=== PATIENT | male | born 1965 | race Caucasian/White ===

== ENCOUNTER → 2023-05-02 | Emergency (ER) | payer BC ==
--- OUTSIDE RECORDS SUMMARY | 2023-05-02 10:03 | XMS REPORT | Clinical Summary ---
Author Name Unknown Organization [facility] Address [address] [place] [address] Care Team Providers Care Ncr Operator Name Role Phone Anna Echeverria MD Primary Care Provider [phone] Trace Jessica MD Unavailable [phone] J Carlos Piedra MD Unavailable [phone] Jaskaran Eden MD Unavailable Allergies Active Allergy Reactions Criticality Noted Date Comments Ciprofloxacin 02/17/2022 Per patient request Gadobutrol Other (See Comments) Medium 09/26/2021 09/26/2021 MRI w/gadavist used. Near end of scan complained of nausea and throat tightness, symptoms quickly resolved, no medical intervention performed. May benefit from 13 hour prep w/benadryl and zofran IV Levofloxacin Other (See Comments) 02/11/2016 Tendon rupture Quinolones Anxiety,Other (See Comments) High 12/15/2018 Tendon rupture Sulfa (Sulfonamide Antibiotics) Rash Low 09/10/2021 Medications Medication Sig Dispensed Refills Start Date End Date Status lisinopril (PRINIVIL,ZESTR IL) 20 mg tablet TAKE 1 TABLET BY MOUTH DAILY 0 2 Active PARoxetine (PAXIL) 40 mg tablet TAKE 1 TABLET BY MOUTH DAILY 0 2 Active acetaminophen 325 mg cap Take 4 capsules (1,300 mg) by mouth 3 (three) times a day as needed. 0 Active tamsulosin (Flomax) 0.4 mg 24 hr capsuleIndicati ons:Adenocarcin renaldo of prostate Take 1 capsule (0.4 mg) by mouth twice daily. 180 capsule 4 02/17/202 3 Active cyclobenzaprine (FLEXERIL) 10 mg tablet TAKE 1 TABLET BY MOUTH EVERY 8 HOURS NEEDED FOR MUSCLE SPASMS 0 3 Active omeprazole (PriLOSEC) 40 MG capsule TAKE 1 CAPSULE BY MOUTH DAILY. DO NOT. START UNTIL ALL ANTIBIOTICS ARE FINISHED 0 3 Active atorvastatin (LIPITOR) 20 mg tablet TAKE 1 TABLET BY MOUTH EVERY NIGHT AT BEDTIME 0 2 01/16/20 23 Discontinued(Not Applicable) tamsulosin (FLOMAX) 0.4 mg 24 hr capsuleIndicati ons:Adenocarcin renaldo of prostate Take 1 capsule (0.4 mg) by mouth at bedtime. 30 capsule 11 2 05/16/19 23 Discontinued tamsulosin (Flomax) 0.4 mg 24 hr capsuleIndicati ons:Adenocarcin renaldo of prostate Take 1 capsule (0.4 mg) by mouth twice daily. 180 capsule 4 2 05/16/19 23 Discontinued pregabalin (Lyrica) 25 mg capsuleIndicati ons:Diffuse pain Take 1 capsule (25 mg) by mouth twice daily. 60 capsule 2 2 01/16/20 23 Discontinued Active Problems Patient Care Coordination No te Formatting of this note migh t be different from the original. 05/18/2022 Pre procedure COVID testing completed at [facility] on 05/17/2022. SARS COV-2 NAAT test result is NEGATIVE. Pt sent results in Cardiovascular Simulation--Attached to [employer] Messaging message. Problem Noted Date Diagnosed Date Adenocarcinoma of prostate 11/15/2021 Cancer Staging:Clinical stage from 11/07/2021:Stage IIC(cT1c, cN0, cM0, PSA: 5.4, Grade Group: 3) - Signed by Rianna Dumont PA on 11/15/2021 Encounters Date Type Department Care Team Description 01/15/2023 9:30 AM CDT Telemedicine [facility] [place] - Radiation Oncology [address] [place] [address] Jaskaran Eden MD Adenocarcinoma of prostate (Primary Dx) 01/13/2023 8:00 PM CDT Ancillary Procedure Image Library [address] [place] [id number] Anna Echeverria MD Cancer 09/18/2022 Telephone MD [facility] [place] - Radiation Oncology [address] [place] [address] [address] [place] [address] Eric Pratt, [place] 07/17/2022 9:00 AM CDT Telemedicine MD [facility] [place] - Radiation Oncology [address] [place] [address] [address] [place] [address] Jaskaran Eden MD Adenocarcinoma of prostate 06/16/2022 Telephone MD [facility] [place] - Pain Medicine [address] [place] [address] [address] [place] [address] Nishi Petersen RN 05/19/2022 10:35 AM DEGREE CLERK Anesthesia Event [facility] Main Bldg, 5th [place] [address] Arnulfo Bourne MD 05/19/2022 Surgery [facility] [address] [place], [place] [address]vd Main Bldg, 5th [place] [address] Pool Car MD DIAGNOSTIC UPPER GASTROINTESTINAL ENDOSCOPY 05/19/2022 Hospital Encounter [facility] [facility] Main Bldg, 5th [place] [address] Pool Car MD 05/16/2022 8:39 AM DEGREE CLERK Anesthesia Event [facility] [address] [place] [address] Main Bldg, 6th [place] [address] Tomás Brumfield Jr., [place] 05/16/2022 8:00 AM DEGREE CLERK POEM Appointments [facility] [address] [place] [address] Main Bldg, 6th [place] [address] Anna Echeverria MD 05/16/2022 Orders Only MD [facility] [place] - Urology [address] [place] [address] Rianna Dumont PA Adenocarcinoma of prostate 05/16/2022 Telephone MD [facility] [place] - Surgical Oncology [address] [place] [address] Dara Devine, torpedo worker clarification (flomax) 05/14/2022 Orders Only MD [facility] [place] - Radiation Oncology [address] [place] [address] Violet Weathers PA Adenocarcinoma of prostate (Primary Dx); Melena after 05/02/2022 Surgical History Surgery Date Site/Laterality Comments SHOULDER SURGERY 03/30/2011 - 03/29/2012 Right COLONOSCOPY 03/30/2016 - 03/29/2017 TONSILLECTOMY 03/30/1972 - 03/29/1973 OTHER SURGICAL HISTORY 03/30/1984 - 03/29/1985 Under the [facility] KNEE SURGERY 03/30/2006 - 03/29/2007 Right No metal placed [place] ESOPHAGOGASTRODUODENOSCOP Y TRANSORAL DIAGNOSTIC 05/19/2022 Esophagus/N/A Procedure: DIAGNOSTIC UPPER GASTROINTESTINAL ENDOSCOPY; Surgeon: Pool Riley MD; Location: MAIN ENDOSCOPY; Service: GASTROENTEROLOGY Medical History Medical History Date Comments Hypertension Hyperlipidemia Irregular heart beat Hearing loss Functional visual loss Swallowing problem Asbestosis Exposure of Asbe stos Pneumonia History of recurrent urinary tract infection Sexual dysfunction Benign prostatic hyperplasia Arthritis Scoliosis D Depressive disorder Anxiety Eczema Arrhythmia Cancer Family History Medical History Relation Name Comments Ovarian cancer Sister Fay Relation Name Status Comments Sister Fay Social History Tobacco Use Types Packs/Day Years Used Date Smoking Tobacco: Every Day Cigarettes 1.5 36 Smokeless Tobacco: Never Tobacco Cessation:Ready to Q uit: Not Asked; Counseling Given: Not Answered Alcohol Use Standard Drinks/Week Comments Yes 5 (1 standard drink = 0.6 oz pur e alcohol) intermittent Sex and Gender Information Value Date Recorded Sex Assigned at Not on file Gender Identity Not on file Sexual Orientation Not on file Job Start Date Occupation Industry Not on file Not on file Not on file Obstetrics History Plan of Treatment Upcoming Encounters Date Type Department Care Team Description 07/14/2023 10:00 AM CDT Lab MD [facility] [place] - [facility] [address] [place] [address] Jaskaran Eden MD [address] [place] [address] 07/16/2023 9:30 AM CDT Telemedicine MD [facility] [place] - Radiation Oncology [address] [place], [place] [id number] Jaskaran Eden MD [facility] [place] [address] Health Maintenance Due Date Last Done Comments COVID-19 Vaccination (#1) 1969 Medical Devices Implanted Type Area Senior Office Support Assistant Sosa Device Identifier Shelf Expiration Date Model / Serial / Lot Morton In Shoulder Procedures Procedure Name Priority Date/Time Associated Diagnosis Comments TESTOSTERONE LEVEL Routine 01/13/2023 8: 27 AM CDT Adenocarcinoma of prostate PROSTATE SPECIFIC ANTIGEN Routine 01/13/2023 8:27 AM CDT Adenocarcinoma of prostate OSI CT CHEST Routine 01/07/2023 11:22 AM CDT Cancer TESTOSTERONE LEVEL Routine 07/11/2022 9: 23 AM CDT Adenocarcinoma of prostate PROSTATE SPECIFIC ANTIGEN Routine 07/11/2022 9:23 AM CDT Adenocarcinoma of prostate DIAGNOSTIC UPPER GASTROINTESTINAL ENDOSCOPY Adenocarcinoma of prostate Case Notes X1 04/19/2022 Patient will call back once he is feeling better from radiation GJF after 05/02/2022 Results * (ABNORMAL) Testosterone Level (01/13/2023 8:27 AM CDT) Only the most recent of2 resultswithin the time period is included. Testoster Tot 171(L) 193 - 740 ng/dL HYDES Comment: Reference Ranges: Male: Age 20 - 49 249 - 836 Age >=50 193 - 740 Female: Age 20 - 49 8 - 48 Age >=50 3 - 41 Testing performed at [facility], [address], [place] [address] Blood 01/13/2023 8:27 AM CDT 01/13/2023 8:48 AM CDT Jaskaran Eden MD LAB BLOOD ORDERABLES Performing Organization Address City/[facility] Co de Phone Number [facility] [address], [address] [place] [address] * PSA (01/13/2023 8:27 AM CDT) Only the most recent of2 resultswithin the time period is included. PSA 0.8 0.0 - 4.0 ng/mL HYDES Comment: Results greater than 4519 ng/mL may not be reliable due to matrix effect with extended dilution as it exceeds the employment attorney's recommended limit. Caution should be exercised when interpreting such values and done in conjunction with clinical context. Testing performed at [facility], [address] [place] [address], [place] [address] PSA Indication Diagnostic HYDES Blood 01/13/2023 8:27 AM CDT 01/13/2023 8:48 AM CDT Jaskaran Eden MD LAB BLOOD ORDERABLES Performing Organization Address [facility] Co de Phone Number [address], [address] [place] [address] * OSI CT Chest (01/07/2023 11:22 AM CDT) Narrative Systemgenerated, Documentation - 01/13/2023 11:22 AM CDT Study acquired at another institution. For comparison only. No Andrew originated interpretation requested or available. Anna Echeverria MD IMG OUTSIDE IMAGE OR DERABLES after 05/02/2022 Care Teams Ncr Operator Relationship Specialty Start Date End Date Anna Echeverria MD [address] [place] [address] PCP - General Urology 09/06/21 Trace Jessica MD [address] [facility] [place] [address] PCP - External Follow Up A Family Practice 12/03/21 J Carlos Piedra MD [address] [place] [address] Consulting Physician Pain Management 03/17/22 Jaskaran Eden MD [address] [place] [address] Consulting Physician Radiation Oncology 11/20/21
--- NOTE | 2023-05-02 10:16 | ER ---
Nurse's Notes [facility] Name: Chance Camarena Age: 57 yrs Sex: Male : 1965 Arrival Date: 05/02/2023 Time: 10:00 Bed 7 Private MD: Diagnosis: Marijuana use, anxiety Presentation: 05/02 10:03 Chief complaint: EMS states: toned out to Vape shop in [place] for pt who smoked ld1 CBD and became disoriented. Pt reports having chronic pain, trying new things to relieve pain. Smoke shop toned out EMS for pt becoming disoriented and stumbling around shop. Coronavirus screen: At this time, the client does not indicate any symptoms associated with coronavirus-19. Ebola Screen: No symptoms or risks identified at this time. Initial Sepsis Screen: Does the patient meet any 2 criteria? No. Patient's initial sepsis screen is negative. Does the patient have a suspected source of infection? No. Patient's initial sepsis screen is negative. Risk Assessment: Do you want to hurt yourself or someone else? Patient reports no desire to harm self or others. Onset of symptoms was May 02, 2023. 10:03 Method Of Arrival: : [place] [facility] ld1 10:03 Acuity: GABRIEL 3 ld1 Triage Assessment: 10:01 General: Appears in no apparent distress. comfortable, Behavior is cooperative, ld1 anxious. Pain: Denies pain. EENT: No signs and/or symptoms were reported regarding the EENT system. Neuro: Level of Consciousness is awake, alert, obeys commands, Oriented to person, place, time, situation. Cardiovascular: Capillary refill < 3 seconds Patient's skin is warm and dry. Rhythm is sinus rhythm. Respiratory: Airway is patent Respiratory effort is even, unlabored. GI: Abdomen is round non-distended. : No signs and/or symptoms were reported regarding the genitourinary system. Derm: No signs and/or symptoms reported regarding the dermatologic system. Musculoskeletal: No signs and/or symptoms reported regarding the musculoskeletal system. Historical: - Allergies: 10:01 Ciprofloxacin; ld1 10:01 fluoroquinolone; ld1 10:01 Sulfa (Sulfonamide Antibiotics); ld1 - PMHx: 10:01 Hypercholesterolemia; Hypertensive disorder; Prostate Cancer; ld1 - Immunization history:: Adult Immunizations up to date. - Social history:: Smoking status: Patient denies any tobacco usage or history of. Patient uses street drugs, marijuana. Screenin:07 [facility] ED Fall Risk Assessment (Adult) History of falling in the last 3 months, ld1 including since admission No falls in past 3 months (0 pts). Abuse screen: Denies threats or abuse. Denies injuries from another. Nutritional screening: No deficits noted. Tuberculosis screening: No symptoms or risk factors identified. Assessment: 10:07 Reassessment: See triage assessment. ld1 Overdose: 10:24 [place] Suicide Severity Screening: "In the past month, have you wished you were ld1 or wished you could go to sleep and not wake up?" Patient responds "no." Patient responds "yes." Based off client's responses, additional C-SSRS screening questions required. "In the past month, have you actually had any thoughts of killing yourself?" Patient responds "no." "In your lifetime, have you ever done anything, started to do anything, or prepared to do anything to end your life?" Patient responds "no.". Vital Signs: 10:01 BP 132 / 88; Pulse 78; Resp 18; Temp 97.9(TE); Pulse Ox 97% on R/A; Weight 99.79 kg; ld1 Height 5 ft. 11 in. ; Pain 0/10; 10:01 Body Mass Index 30.68 (99.79 kg, 180.34 cm) ld1 10:01 Pain Scale: Adult ld1 ED Course: 10:01 Patient arrived in ED. ld1 10:01 Aleks White MD is Attending Physician. sp3 10:01 Arm band placed on right wrist. ld1 10:05 Triage completed. ld1 10:06 Kirti Angela, [place] is Primary Nurse. ld1 10:07 Patient has correct armband on for positive identification. Placed in gown. Bed in low ld1 position. Call light in reach. Side rails up X2. continuous improvement analyst on. Pulse ox on. NIBP on. Door closed. Noise minimized. Warm blanket given. 10:07 No provider procedures requiring assistance completed. Patient did not have IV access ld1 during this emergency room visit. Administered Medications: No medications were administered Medication: 10:07 VIS not applicable for this client. ld1 Outcome: 10:15 Discharge ordered by . sp3 10:25 Discharged to home ambulatory, ld1 10:25 Condition: stable 10:25 Discharge instructions given to patient, Instructed on discharge instructions, follow up and referral plans. Demonstrated understanding of instructions, follow-up care, 10:25 Patient left the ED. ld1 Signatures: Kirti Angela RN RN ld1 Aleks White MD MD sp3
--- NOTE | 2023-05-02 10:16 | EDPHYS ---
Physician Documentation [facility] Name: Chance Camarena Age: 57 yrs Sex: Male : 1965 Arrival Date: 05/02/2023 Time: 10:00 Bed 7 Private MD: ED Physician Aleks White HPI: 05/02 10:08 This 57 yrs old Male presents to ER via Unassigned with complaints of anxiety. sp3 10:08 57-year-old male with history of prostate cancer, hyperlipidemia, hypertension who sp3 normally states he uses recreational marijuana who today took "3 pills" of CBD oil at the local smoke shop presents via EMS for feelings of disorientation and anxiety which have now fully resolved. He has no other complaints. Review of systems otherwise negative.. Historical: - Allergies: 10:01 Ciprofloxacin; ld1 10:01 fluoroquinolone; ld1 10:01 Sulfa (Sulfonamide Antibiotics); ld1 - PMHx: 10:01 Hypercholesterolemia; Hypertensive disorder; Prostate Cancer; ld1 - Immunization history:: Adult Immunizations up to date. - Social history:: Smoking status: Patient denies any tobacco usage or history of. Patient uses street drugs, marijuana. ROS: 10:14 Constitutional: Negative for fever, chills, and weight loss, Eyes: Negative for injury, sp3 pain, redness, and discharge, ENT: Negative for injury, pain, and discharge, Neck: Negative for injury, pain, and swelling, Cardiovascular: Negative for chest pain, palpitations, and edema, Respiratory: Negative for shortness of breath, cough, wheezing, and pleuritic chest pain, Abdomen/GI: Negative for abdominal pain, nausea, vomiting, diarrhea, and constipation, Back: Negative for injury and pain, : Negative for injury, bleeding, discharge, and swelling, MS/Extremity: Negative for injury and deformity, Skin: Negative for injury, rash, and discoloration, Neuro: Negative for headache, weakness, numbness, tingling, and seizure, Allergy/Immunology: Negative for hives, rash, and allergies, Endocrine: Negative for neck swelling, polydipsia, polyuria, polyphagia, and marked weight changes, Hematologic/Lymphatic: Negative for swollen nodes, abnormal bleeding, and unusual bruising, 10:14 All other systems are negative, Exam: 10:14 Constitutional: This is a well developed, well nourished patient who is awake, alert, sp3 and in no acute distress. Head/Face: Normocephalic, atraumatic. Eyes: Pupils equal round and reactive to light, extra-ocular motions intact. Lids and lashes normal. Conjunctiva and sclera are non-icteric and not injected. Cornea within normal limits. Periorbital areas with no swelling, redness, or edema. Neck: Trachea midline, no thyromegaly or masses palpated, and no cervical lymphadenopathy. Supple, full range of motion without nuchal rigidity, or vertebral point tenderness. No Meningismus. Chest/axilla: Normal chest wall appearance and motion. Nontender with no deformity. No lesions are appreciated. Cardiovascular: Regular rate and rhythm with a normal S1 and S2. No gallops, murmurs, or rubs. Normal PMI, no JVD. No pulse deficits. Respiratory: Lungs have equal breath sounds bilaterally, clear to auscultation and percussion. No rales, rhonchi or wheezes noted. No increased work of breathing, no retractions or nasal flaring. Abdomen/GI: Soft, non-tender, with normal bowel sounds. No distension or tympany. No guarding or rebound. No evidence of tenderness throughout. Back: No spinal tenderness. No costovertebral tenderness. Full range of motion. Skin: Warm, dry with normal turgor. Normal color with no rashes, no lesions, and no evidence of cellulitis. MS/ Extremity: Pulses equal, no cyanosis. Neurovascular intact. Full, normal range of motion. Neuro: Awake and alert, GCS 15, oriented to person, place, time, and situation. Cranial nerves II-XII grossly intact. Motor strength 5/5 in all extremities. Sensory grossly intact. Cerebellar exam normal. Normal gait. Psych: Awake, alert, with orientation to person, place and time. Behavior, mood, and affect are within normal limits. Vital Signs: 10:01 BP 132 / 88; Pulse 78; Resp 18; Temp 97.9(TE); Pulse Ox 97% on R/A; Weight 99.79 kg; ld1 Height 5 ft. 11 in. ; Pain 0/10; 10:01 Body Mass Index 30.68 (99.79 kg, 180.34 cm) ld1 10:01 Pain Scale: Adult ld1 MDM: 10:01 Patient medically screened. sp3 10:14 Data reviewed: vital signs, nurses notes, EMS record. ED course: 57-year-old male with sp3 resolved anxiety after taking CBD oil. There are no psychiatric issues present. There is no SI/HI or psychosis. Patient contracts for safety he has no somatic complaints. He is fully oriented and alert. We will safely discharged home at this time.. Administered Medications: No medications were administered Disposition Summary: 05/02/23 10:15 Discharge Ordered Notes: Location: Home sp3 Condition: Stable sp3 Diagnosis - Marijuana use, anxiety sp3 Followup: sp3 - With: Private Physician - When: Upon discharge from the Emergency Department - Reason: Continuance of care Discharge Instructions: - Discharge Summary Sheet sp3 - Preventing Marijuana Misuse sp3 Forms: - Medication Reconciliation Form sp3 - Thank You Letter sp3 - Antibiotic Education sp3 - Prescription Opioid Use sp3 - Patient Portal Instructions sp3 - Leadership Thank You Letter sp3 Signatures: Kirti Angela RN RN ld1 Aleks White MD MD sp3
[2023-05-02 10:43] VITALS: BP 132/88; TEMP 97.9; O2SAT 97
== END ==
LOC: ER 10:00
DX: F12.90 Cannabis use, unspecified, uncomplicated (principal); Z88.1 Allergy status to other antibiotic agents; Z88.2 Allergy status to sulfonamides